=== PATIENT | male | born 1965 | race Two or more races ===

== ENCOUNTER 2024-02-13 18:26 | Emergency (ER) | payer MEDICAID, SELFPAY ==
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
[2024-02-13 19:09] VITALS: BP 159/90; PULSE 101; RESP 20; TEMP 37.1; O2SAT 96
--- NOTE | 2024-02-13 19:12 | XR_ITS ---
Examination: CT abdomen and pelvis without contrast. Coronal 3-D reconstructions. Sagittal 2-D reconstructions. Date and time of exam:February 13, 2024 1928 hrs. Comparison August 20, 2013 Hematuria, flank pain beginning 2 days ago CTDI: vol (mGy): 8.77 DLP: (mGycm): 571 Technique: Axial images of the abdomen have been obtained, 3 mm slice thickness Intravenous contrast material has not been administered. Low dose protocols were performed. One or more of the following dose reduction techniques were used; automated exposure control, adjustment of the mA and/or KV according to patient size, use of iterative reconstruction technique. Findings: No focal liver or splenic lesions Contracted gallbladder No pancreatic or adrenal mass 3 mm left 4 mm right nonobstructing renal calculi No hydronephrosis or ureteral calculi Aorta normal size Normal appendix No bowel obstruction No diverticulitis Transverse prostate dimension 5.6 cm Minimal thickening of the urinary bladder wall, no bladder calculi Fat-containing inguinal hernias Orthopedic hardware at the symphysis Impression: Bilateral nonobstructing renal calculi, no hydronephrosis or ureteral calculi Normal appendix Moderate prostatomegaly
[2024-02-13 20:00] LABS: Basophils # (Auto) 0.1 Thou/mm3 (0.0-0.2); Basophils % (Auto) 1 % (0-2.5); Eosinophils # (Auto) 0.2 Thou/mm3 (0.0-0.5); Eosinophils % (Auto) 2 % (0-10); Hematocrit 41.4 % (41.0-53.0); Hemoglobin 14.3 g/dL (13.5-16.0); Immature Granulocytes % (Auto) 0 % (0-0); Immature Granulocytes Auto 0.03 Thou/mm3 (0.00-0.00); Lymphocytes # (Auto) 2.8 Thou/mm3 (1.0-4.8); Lymphocytes % (Auto) 27 % (10-50); Mean Corpuscular HGB Conc 34.5 g/dl (31.0-37.0); Mean Corpuscular Hemoglobin 30.7 pg (25.0-35.0); Mean Corpuscular Volume 89 fL (80-100); Monocytes # (Auto) 0.8 Thou/mm3 (0.0-0.8); Monocytes % (Auto) 7 % (0-12); Neutrophils # (Auto) 6.5 Thou/mm3 (1.8-7.7); Neutrophils % (Auto) 63 % (37-80); Nucleated Red Blood Cell % 0 /100 WBC (0); Platelet Count 368 Thou/mm3 (140-440); RDW Standard Deviation 40.1 fL (35.1-43.9); Red Blood Count 4.66 Miln/mm3 (4.50-5.90); White Blood Count 10.4 Thou/mm3 (3.8-10.6)
[2024-02-13] MEDS: SODIUM CHLORIDE 0.9% 1000 ML 1,000 ML 999 ML IV (20:05)
[2024-02-13] MEDS: KETOROLAC INJ 30 MG/ML VIAL IVP (20:05)
[2024-02-13] MEDS: ONDANSETRON INJ 2 MG/ML INJ 2 ML 4 MG IV (20:07)
[2024-02-13 20:31] LABS: Alanine Aminotransferase 24 U/L (10-49); Albumin/Globulin Ratio 1.9 (1.2-2.2); Alkaline Phosphatase 112 U/L (46-116); Anion Gap 10 (7-16); BUN/Creatinine Ratio 16 Ratio (12-20); Bilirubin,Total 0.4 mg/dL (0.3-1.2); Blood Urea Nitrogen 13 mg/dL (9-23); Calcium 9.8 mg/dL (8.3-10.6); Calcium (Corrected) 9.8 mg/dL (8.5-10.1); Carbon Dioxide 24.6 mMol/L (20.0-31.0); Chloride 104 mMol/L (98-107); Creatinine (Component) 0.8 mg/dL (0.6-1.3); Globulin 2.7 gm/dL (2.3-3.5); Glucose 157 mg/dL (74-106); Osmolality,Calculated 280 (275-295); Potassium 3.7 mMol/L (3.4-5.1); Sodium 139 mMol/L (136-145); Total Protein 7.7 gm/dL (5.7-8.2); eGFR > 60 See Note
[2024-02-13 20:46] LABS: Aspartate Amino Transferase 18 U/L (0-34)
[2024-02-13 22:33] LABS: Collection Type, Urine Clean Catch; Squamous Epithelial Cell,Urine 0 /hpf (0-5)
[2024-02-13 23:39] VITALS: BP 144/78; PULSE 74; RESP 19; TEMP 36.6; O2SAT 97
[2024-02-14 00:05] VITALS: TEMP 36.7
[2024-02-14 00:55] VITALS: BMI 33.6
[2024-02-14 01:23] LABS: Bilirubin,Urine Negative (Negative); Blood,Urine 3+ (Negative); Glucose, Urine Negative (Negative); Ketones,Urine Negative (Negative); Leukocyte Esterase,Urine Positive (Negative); Nitrite,Urine Negative (Negative); PH,Urine 6.5 (5.0-7.0); Protein,Urine 1+ (Neg - Trace); RBC,Urine 6632 /hpf (0-3); Urobilinogen,Urine Negative mg/dL (0.0-1.0); WBC,Urine 46 /hpf (0-5)
[2024-02-14 01:24] LABS: Clarity,Urine Turbid (Clear/Hazy); Color,Urine Red (Lt Yel-Yel); Culture Indicated,Urine Yes
[2024-02-14] MEDS: ACETAMINOPHEN w/COD 300-30 TABLET 2 TAB PO (03:59)
[2024-02-14 04:00] VITALS: BP 145/81; PULSE 76; RESP 19; O2SAT 96
[2024-02-14] MEDS: OXYBUTYNIN CHLOR 5 MG TABLET PO (04:14)
== END 2024-02-14 04:23 | disposition home or self-care (01) ==
PROVIDERS: Emergency Provider Emergency Medicine; PCP Family Medicine
DX: R31.9 Hematuria, unspecified (principal)
CPT/HCPCS: 51702; 36415; 74176; 80053; 81001; 83735; 85025; 87086; 96361; 96374; 96375; 99284; J1885; J2405; J7030; A9270

== ENCOUNTER 2024-02-14 08:54 | Emergency (ER) | payer MEDICAID, SELFPAY ==
[2024-02-14 09:09] VITALS: BP 145/76; PULSE 65; RESP 16; TEMP 37.2; O2SAT 96; BMI 34.7
--- NOTE | 2024-02-14 09:21 | PD.EDMALE ---
ED Male Genitalurinary RME/HPI General Chief complaint: Urogenital-Male Stated complaint: BLOOD IN URINE, WANTS CATHETER REMOVED,HERE TODAY Time Seen by Provider: 02/14/24 09:07 Arrival date/time: 02/14/24 08:54 58-year-old male presents emergency department today stating had a Rangel catheter placed yesterday patient reports that he no longer wants a catheter and wants catheter removed Limitations: no limitations Related Data Home Medications ?Medication ?Instructions ?Recorded ?Confirmed ascorbic acid (vitamin C) 500 mg 500 mg PO QDAY 10/10/22 10/10/22 tablet (Vitamin C) ferrous sulfate 325 mg (65 mg 325 mg PO BID 10/10/22 10/10/22 iron) tablet (FeroSul) gabapentin 300 mg capsule 300 mg PO BID 10/10/22 10/10/22 pulcgpxiokbi-gzltuixg-pudjrz tablet 1 tab PO QDAY 10/10/22 10/10/22 oxycodone 5 mg tablet 5 mg PO Q6H PRN Pain 10/10/22 10/10/22 sennosides 8.6 mg-docusate sodium 1 tab PO EVERYOTHERDAY 10/10/22 10/10/22 50 mg tablet (Senna with Docusate Sodium) Previous Rx's ?Medication ?Instructions ?Recorded apixaban 5 mg tablet (Eliquis) 5 mg PO BID 30 days #60 tabs 10/12/22 Allergies Allergy/AdvReac Type Severity Reaction Status Date / Time No Known Allergies Allergy Unverified 02/14/24 08:56 Review of Systems Review of Systems Systems Reviewed: All systems reviewed, normal except as documented Constitutional Constitutional: Reports system reviewed and no additional complaints, except as documented, Denies fever(s) and Denies headache(s) Eyes Eyes: Reports system reviewed and no additional complaints, except as documented and Denies blurry vision ENT Ears, Nose, Mouth, and Throat: Reports system reviewed and no additional complaints, except as documented, Denies headache(s), Denies nasal congestion and Denies nasal discharge Cardiovascular Cardiovascular: Reports system reviewed and no additional complaints, except as documented, Denies chest pain and Denies dyspnea Respiratory Respiratory: Reports system reviewed and no additional complaints, except as documented, Denies chest congestion, Denies cough and Denies dyspnea Gastrointestinal Gastrointestinal: Reports system reviewed and no additional complaints, except as documented and Denies abdominal pain Genitourinary Genitourinary: Reports system reviewed and no additional complaints, except as documented and Reports other (Rangel catheter in place hematuria) Integumentary/Breasts Skin/Breast: Reports system reviewed and no additional complaints, except as documented and Denies rash Neurologic Neurologic: Reports system reviewed and no additional complaints, except as documented, Reports as per HPI and Denies headache(s) Past Medical History Past Medical History NEUROLOGIC: Negative Neurological Disorders CARDIAC: Positive Cardiac Disorders, Cardiac Arrhythmia, Atrial Fibrillation, Hypercholesterolemia and Hypertension; Negative Congestive Heart Failure RESPIRATORY: Positive Pulmonary Embolism; Negative Chronic Obstructive Pulmonary Disease (COPD) GASTROINTESTINAL: Negative Gastrointestinal Disorders GENITOURINARY: Negative Genitourinary Disorders or Renal Disease MUSCULOSKELETAL: Positive Arthritis and Fractures; Negative Musculoskeletal Disorders ENDOCRINE: Negative Diabetes Mellitus Type 1 or Diabetes Mellitus Type 2 HEMATOLOGIC: Negative Blood Disorders PSYCHO/SOCIAL: Positive Depression and Anxiety OTHER HISTORY: Positive Falls and Blood Transfusions; Negative Blood Transfusion Reaction or Cancer Family History FAMILY HISTORY: Positive Family Cardiac Disorders Surgical History SURGICAL: Positive Abdominal Surgery Social History SMOKING STATUS: Never smoker ED Exam General Limitations: Present no limitations General appearance: Present alert and in no apparent distress Head Head exam: Present atraumatic, normocephalic and normal inspection Eye Eye exam: Present normal appearance, PERRL and EOMI ENT ENT exam: Present normal exam, normal oropharynx and mucous membranes moist Neck Neck exam: Present normal inspection, full ROM and trachea midline Chest Chest inspection: Present normal inspection and symmetric chest wall rise Respiratory Respiratory exam: Present normal lung sounds bilaterally; Absent respiratory distress Cardiovascular Cardiovascular exam: Present regular rate, normal rhythm and normal heart sounds Abdominal Exam Abdominal exam: Present soft and normal bowel sounds; Absent distention, tenderness, guarding, rebound or rigidity exam: Present other (Rangel catheter in place) Extremities Exam Extremities exam: Present normal inspection and full ROM Back Exam Back exam: Present normal inspection and full ROM Neurological Exam Neurological exam: Present alert, oriented X3 and CN II-XII intact Psychiatric Psychiatric exam: Present normal affect and normal mood Skin Skin exam: Present warm, dry, intact and normal color Course Quality Measures none Orders Category Date Time Status Rangel [Urinary Catheter, Remove] NOW Care 02/14/24 09:18 Completed Vital Signs Vital signs: Vital Signs Temperature 99.0 F 02/14/24 09:09 Pulse Rate 65 02/14/24 09:09 Respiratory Rate 16 02/14/24 09:09 Blood Pressure 145/76 H 02/14/24 09:09 Pulse Oximetry (%) 96 02/14/24 09:09 Oxygen Delivery Method Room Air 02/14/24 09:09 O2 saturation 96% room air within normal limits Urogenital - Male MDM Narrative MDM Narrative:: 58-year-old male presents emergency department today stating had a Rangel catheter placed yesterday patient reports that he no longer wants a catheter and wants catheter removed On exam patient has catheter in place Patient's catheter was removed explained to the patient that if he has any retention he must return for replacement of catheter Patient discharged home in no distress to follow-up with primary care doctor in the next 24 to 48 hours and for any worsening symptoms to return to the ER immediately Patient data External records reviewed:: [facility] [place] Clinical information provided by:: patient Social determinants that could affect healthcare access:: none Patient has the following chronic illnesses:: See history How is presenting disease/condition affected by chronic disease/condition?: exacerbated by Evaluation data The following diagnostics were reviewed and interpreted by me:: other (specify) (N/A) Lab and/or radiology exams considered but not ordered:: Consider not ordered Interpretation Summary: N/A Medications / Prescriptions Medications or Prescriptions considered but not ordered:: Given Medication administrations:: Given Consultations Consultation(s) initiated? (list below): No Diagnosis Urogenital Male Differential Diagnosis: other (N/A) Most likely diagnosis given after review of the tests above:: Consider not ordered Admission Indicated Admission indicated?: not indicated Admission Request Was there a request for admission?: No Disposition Plan Disposition Plan: Discharge Discharge Attestation Discharge Attestation: The patient and all family members were given an opportunity to ask questions and understood the discharge instructions. Discharge instructions specifically effects, indications for sooner follow up or return to the emergency department, and the expected course of current diagnosis. Patient condition: Stable Discharge Plan Plan Patient Disposition: HOME (Self Care) Disposition Comment: Stable Prescriptions/Referrals Prescriptions/Med Rec: No Action ferrous sulfate [FeroSul] 325 mg (65 mg iron) Tablet 325 mg PO BID gabapentin 300 mg Capsule 300 mg PO BID sennosides-docusate sodium [Senna with Docusate Sodium] 8.6-50 mg Tablet 1 tab PO EVERYOTHERDAY ascorbic acid (vitamin C) [Vitamin C] 500 mg Tablet 500 mg PO QDAY oxycodone 5 mg Tablet 5 mg PO Q6H PRN (Reason: Pain) [id number]-zvukeytg-huynjd Tablet 1 tab PO QDAY Eliquis 5 mg Tablet 5 mg PO BID 30 Days Qty: 60 0RF Problem List Clinical Impression: Hematuria, Rangel catheter problem Patient/Caregiver Discharge Instructions Education Materials: ED Hematuria Additional Instructions: Please follow up with your primary care doctor in the next 24-48hrs for any worsening symptoms return here immediately Print Language: Sami Stand Alone Forms: Leonora Award Info., Patient Portal Info Letter PA/S[employer] WORKERS SUPERVISOR Supervising Physician PA/SUR[employer] WORKERS SUPERVISOR Supervising Physician: Dr Johansen
== END 2024-02-14 10:51 | disposition home or self-care (01) ==
LOC: SERX 09:27
PROVIDERS: Emergency Provider Emergency Medicine; PCP Family Medicine
DX: R31.9 Hematuria, unspecified (principal)
CPT/HCPCS: 99282

== ENCOUNTER → 2024-03-09 | Outpatient (CLI) | payer MEDICAID, SELFPAY ==
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
== END | disposition home or self-care (01) ==
PROVIDERS: Referring Provider Physician Assistant; Visit Provider Physician Assistant
DX: M51.369 Other intervertebral disc degeneration, lumbar region without mention of lumbar back pain or lower extremity pain (principal); M51.379 Other intervertebral disc degeneration, lumbosacral region without mention of lumbar back pain or lower extremity pain
CPT/HCPCS: 72110

== ENCOUNTER 2024-08-21 12:50 | Outpatient (RCR) | payer MEDICAID, SELFPAY ==
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
== END 2024-08-21 23:59 | disposition home or self-care (01) ==
LOC: CPTX 12:50
PROVIDERS: PCP Family Medicine; Referring Provider Family Medicine; Visit Provider Family Medicine
DX: M54.50 Low back pain, unspecified (principal); M79.605 Pain in left leg; R53.1 Weakness; I10 Essential (primary) hypertension
CPT/HCPCS: 97162